=== PATIENT | male | born 1955 | race Caucasian/White ===

== ENCOUNTER 2017-04-09 06:01 | Emergency (ER) | payer MEDICAID ==
[~2017-04-09] VITALS: Ht 175.3 cm; Wt 90.4 kg
[~2017-04-09 06:01] MED LIST: ALBU8HFA PO; HYDR-569 PO; IBUP-1985 PO; NO HOME MEDS
[2017-04-09] MEDS ORDERED: aspirin 81mg tab.chew PO ONE (06:35)
[2017-04-09 07:06] LABS: BASOPHILS # (AUTO) 0.1 X10'3 (0-0.2); BASOPHILS % (AUTO) 0.6 % (0-1); EOSINOPHILS # (AUTO) 0.6 X10'3 (0-0.9); EOSINOPHILS % (AUTO) 5.9 % (0-6); HEMATOCRIT 39.8 % (42.0-52.0); HEMOGLOBIN 13.7 g/dl (14.0-17.9); LYMPHOCYTES # (AUTO) 1.6 X10'3 (1.1-4.8); MEAN CORPUSCULAR HEMOGLOBIN 31.1 PG (27.0-31.0); MEAN CORPUSCULAR HGB CONC 34.5 % (33.0-36.5); MEAN PLATELET VOLUME 7.9 FL (7.4-10.4); MONOCYTES # (AUTO) 0.9 X10'3 (0-0.9); MONOCYTES % (AUTO) 9.7 % (2-12); NEUTROPHILS # (AUTO) 6.5 X10'3 (1.8-7.7); NEUTROPHILS % (AUTO) 66.8 % (42-75); PLATELET COUNT 226 X10'3 (140-440); RED BLOOD COUNT 4.42 X10'6 (4.70-6.10); RED CELL DISTRIBUTION WIDTH 14.5 % (11.5-14.5); WHITE BLOOD COUNT 9.7 X10'3 (4.5-11.0)
[2017-04-09 07:20] LABS: D-DIMER 1.19 MG/L FEU (0-0.50)
[2017-04-09 07:23] LABS: ALANINE AMINOTRANSFERASE 33 U/L (12-78); ALBUMIN 3.2 G/DL (3.4-5.0); ALBUMIN/GLOBULIN RATIO 0.9 (1.1-1.5); ALKALINE PHOSPHATASE 248 IU/L (46-116); ANION GAP 6 (8-16); ASPARTATE AMINO TRANSFERASE 19 U/L (10-37); BILIRUBIN,TOTAL 0.2 MG/DL (0.1-1.0); BLOOD UREA NITROGEN 19 MG/DL (7-18); BUN/CREATININE RATIO 21.1 (5.4-32.0); CALCIUM 8.7 MG/DL (8.5-10.1); CHLORIDE 107 MMOL/L (99-107); GLUCOSE 104 MG/DL (70-104); SODIUM 140 MMOL/L (135-145); TOTAL PROTEIN 6.8 G/DL (6.4-8.2); eGFR 86 ML/MIN
[2017-04-09] MEDS ORDERED: iohexol 350MG/ML 100ml bottle IV ONE (07:49)
[2017-04-09] MEDS ORDERED: ondansetron/PF 4mg/2ml inj IV ONE (07:55)
[2017-04-09] MEDS ORDERED: morphine 2 MG/ML inj. syringe IV ONE ×2 (07:55→08:05)
[2017-04-09] MEDS ORDERED: morphine 4 MG/ML inj SYRINge IV ONE (08:10)
[2017-04-09 10:20] VITALS: BP 144/94
== END 2017-04-09 10:23 | disposition home or self-care (01) ==
LOC: ER 06:02
DX: R07.89 Other chest pain (principal); G95.9 Disease of spinal cord, unspecified; I48.91 Unspecified atrial fibrillation; Z98.890 Other specified postprocedural states; Z60.2 Problems related to living alone
CPT/HCPCS: 36415; 71045; 71275; 80053; 84484; 85025; 85379; 93005; 96374; 96375; 99285; J2270; J2405; J7030; Q9967

== ENCOUNTER 2017-05-20 10:23 | Emergency (ER) | payer MEDICAID ==
[~2017-05-20] VITALS: Ht 170.2 cm; Wt 91.4 kg
[~2017-05-20 10:23] MED LIST changes: +NAPR-1144 PO
[2017-05-20] MEDS ORDERED: ondansetron/PF 4mg/2ml inj IV ONE (11:15)
[2017-05-20] MEDS ORDERED: HYDROmorphone 1 mg/ml syringe IV ONE (11:15)
[2017-05-20] MEDS ORDERED: morphine 4 MG/ML inj SYRINge IV ONE ×2 (11:35→14:40)
[2017-05-20] MEDS ORDERED: ketorolac trometh. 30mg/ml inj. IV ONE (11:50)
[2017-05-20 13:23] LABS: BASOPHILS % (AUTO) 0.2 % (0-1); EOSINOPHILS # (AUTO) 0.1 X10'3 (0-0.9); EOSINOPHILS % (AUTO) 1.9 % (0-6); HEMOGLOBIN 12.3 g/dl (14.0-17.9); LYMPHOCYTES # (AUTO) 1.1 X10'3 (1.1-4.8); LYMPHOCYTES % (AUTO) 15.5 % (21-51); MEAN CORPUSCULAR HEMOGLOBIN 30.6 PG (27.0-31.0); MEAN CORPUSCULAR HGB CONC 34.2 % (33.0-36.5); MEAN CORPUSCULAR VOLUME 89.4 FL (78-98); MEAN PLATELET VOLUME 7.7 FL (7.4-10.4); MONOCYTES # (AUTO) 0.8 X10'3 (0-0.9); MONOCYTES % (AUTO) 10.9 % (2-12); NEUTROPHILS # (AUTO) 5.3 X10'3 (1.8-7.7); NEUTROPHILS % (AUTO) 71.5 % (42-75); PLATELET COUNT 258 X10'3 (140-440); RED BLOOD COUNT 4.03 X10'6 (4.70-6.10); RED CELL DISTRIBUTION WIDTH 14.3 % (11.5-14.5); WHITE BLOOD COUNT 7.4 X10'3 (4.5-11.0)
[2017-05-20 13:45] LABS: ALANINE AMINOTRANSFERASE 51 U/L (12-78); ALBUMIN/GLOBULIN RATIO 0.7 (1.1-1.5); ALKALINE PHOSPHATASE 289 IU/L (46-116); ANION GAP 10 (8-16); ASPARTATE AMINO TRANSFERASE 32 U/L (10-37); BILIRUBIN,TOTAL 0.5 MG/DL (0.1-1.0); BLOOD UREA NITROGEN 12 MG/DL (7-18); BUN/CREATININE RATIO 15.8 (5.4-32.0); CALCIUM 8.7 MG/DL (8.5-10.1); CHLORIDE 105 MMOL/L (99-107); CREATININE 0.76 MG/DL (0.60-1.10); GLUCOSE 109 MG/DL (70-104); POTASSIUM 3.4 MMOL/L (3.5-5.1); SODIUM 141 MMOL/L (135-145); TOTAL PROTEIN 7.1 G/DL (6.4-8.2); eGFR > 90 ML/MIN
[2017-05-20] MEDS ORDERED: iohexol 300mg/ml 100ml inj. ONE (13:51)
[2017-05-20] MEDS ORDERED: MSC15T PO (14:35)
[2017-05-20] MEDS ORDERED: IBUP-1984 PO (14:35)
[2017-05-20 15:21] VITALS: BP 134/75
== END 2017-05-20 15:53 | disposition home or self-care (01) ==
LOC: ER 10:23
DX: M48.04 Spinal stenosis, thoracic region (principal); I48.91 Unspecified atrial fibrillation; G89.29 Other chronic pain; F15.10 Other stimulant abuse, uncomplicated; Z98.890 Other specified postprocedural states; Z60.2 Problems related to living alone
CPT/HCPCS: 36415; 74177; 80053; 85025; 96374; 96375; 96376; 99285; J1885; J2270; J2405; J7030; Q9967

== ENCOUNTER 2017-06-04 13:30 | Emergency (ER) | payer MEDICARE, MEDICAID ==
[~2017-06-04] VITALS: Ht 175.3 cm; Wt 95.0 kg
[~2017-06-04 13:30] MED LIST changes: +IBUP-1984 PO
[2017-06-04 14:22] LABS: BASOPHILS % (AUTO) 0.5 % (0-1); EOSINOPHILS # (AUTO) 0.1 X10'3 (0-0.9); EOSINOPHILS % (AUTO) 1.8 % (0-6); HEMATOCRIT 41.5 % (42.0-52.0); HEMOGLOBIN 14.2 g/dl (14.0-17.9); LYMPHOCYTES % (AUTO) 14.1 % (21-51); MEAN CORPUSCULAR HEMOGLOBIN 30.5 PG (27.0-31.0); MEAN CORPUSCULAR HGB CONC 34.2 % (33.0-36.5); MEAN CORPUSCULAR VOLUME 89.3 FL (78-98); MEAN PLATELET VOLUME 7.9 FL (7.4-10.4); MONOCYTES # (AUTO) 0.5 X10'3 (0-0.9); MONOCYTES % (AUTO) 7.4 % (2-12); NEUTROPHILS # (AUTO) 5.5 X10'3 (1.8-7.7); NEUTROPHILS % (AUTO) 76.2 % (42-75); PLATELET COUNT 288 X10'3 (140-440); RED BLOOD COUNT 4.65 X10'6 (4.70-6.10); RED CELL DISTRIBUTION WIDTH 14.1 % (11.5-14.5); WHITE BLOOD COUNT 7.2 X10'3 (4.5-11.0)
[2017-06-04 14:32] LABS: PARTIAL THROMBOPLASTIN TIME 25 SECONDS (22-32); PROTHROMBIN TIME 10.4 SECONDS (9.0-12.0)
[2017-06-04 14:36] LABS: ALANINE AMINOTRANSFERASE 34 U/L (12-78); ALBUMIN 3.6 G/DL (3.4-5.0); ALBUMIN/GLOBULIN RATIO 0.9 (1.1-1.5); ALKALINE PHOSPHATASE 476 IU/L (46-116); ANION GAP 9 (8-16); ASPARTATE AMINO TRANSFERASE 23 U/L (10-37); BILIRUBIN,TOTAL 0.6 MG/DL (0.1-1.0); BLOOD UREA NITROGEN 11 MG/DL (7-18); BUN/CREATININE RATIO 12.6 (5.4-32.0); CALCIUM 9.5 MG/DL (8.5-10.1); CHLORIDE 107 MMOL/L (99-107); CREATININE 0.87 MG/DL (0.60-1.10); GLUCOSE 105 MG/DL (70-104); POTASSIUM 3.4 MMOL/L (3.5-5.1); SODIUM 143 MMOL/L (135-145); TOTAL CARBON DIOXIDE 26.6 MMOL/L (24-32); TOTAL PROTEIN 7.7 G/DL (6.4-8.2); eGFR 90 ML/MIN
[2017-06-04] MEDS ORDERED: ondansetron/PF 4mg/2ml inj IV ONE (15:55)
[2017-06-04] MEDS ORDERED: morphine 4 MG/ML inj SYRINge IV ONE (15:55)
[2017-06-04 18:47] VITALS: BP 148/86
[2017-06-04] MEDS ORDERED: morphine ER 15mg tablet PO STA (19:20)
[2017-06-04] MEDS ORDERED: ketorolac trometh. 30mg/ml inj. IV ONE (19:20)
[2017-06-04] MEDS ORDERED: dexamethasone sod phosphate 10mg/ml inj IV STA (20:03)
[2017-06-05] MEDS ORDERED: dexamethasone 4mg/ml inj IV SCH (00:57)
== END 2017-06-04 23:34 | disposition short-term general hospital (02) ==
LOC: ER 13:31
DX: C79.51 Secondary malignant neoplasm of bone (principal); G95.29 Other cord compression; M62.81 Muscle weakness (generalized); I48.91 Unspecified atrial fibrillation; G89.29 Other chronic pain; F15.10 Other stimulant abuse, uncomplicated; Z59.0 Homelessness; Z87.01 Personal history of pneumonia (recurrent); Z98.890 Other specified postprocedural states; Z79.899 Other long term (current) drug therapy; Z60.2 Problems related to living alone
CPT/HCPCS: 36415; 72157; 72158; 80053; 85025; 85610; 85730; 96374; 96375; 99285; J1100; J1885; J2270; J2405

== ENCOUNTER 2017-10-16 11:45 | Emergency (ER) | payer MEDICARE, MEDICAID ==
[~2017-10-16] VITALS: Ht 175.3 cm; Wt 95.5 kg
[~2017-10-16 11:45] MED LIST changes: -IBUP-1984 PO
[2017-10-16 11:48] VITALS: BP 128/72
== END 2017-10-16 12:42 | disposition left against medical advice (07) ==
LOC: ER 11:45
DX: G89.3 Neoplasm related pain (acute) (chronic) (principal); C18.9 Malignant neoplasm of colon, unspecified; C79.51 Secondary malignant neoplasm of bone; I48.91 Unspecified atrial fibrillation; F31.9 Bipolar disorder, unspecified; F15.90 Other stimulant use, unspecified, uncomplicated; Z98.890 Other specified postprocedural states; Z59.0 Homelessness; Z60.2 Problems related to living alone; Z79.1 Long term (current) use of non-steroidal anti-inflammatories (NSAID); Z79.899 Other long term (current) drug therapy
CPT/HCPCS: 99284